=== PATIENT | male | born 1980 ===

== ENCOUNTER 2019-03-10 19:14 | Emergency (ER) | payer OTHER, SELFPAY ==
[2019-03-10 19:29] VITALS: BMI 57.6
[2019-03-10 19:34] VITALS: BP 125/84; PULSE 91; RESP 18; TEMP 97.8
[2019-03-10] MEDS ORDERED: Naproxen 550 mg Tab PO STA (20:00)
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
[2019-03-10 22:34] VITALS: O2SAT 98
--- NOTE | 2019-03-11 09:38 | RAD ---
Date of service: 03/10/2019 PROCEDURE: Radiographs of the right tibia and fibula. HISTORY: pain COMPARISON: None available TECHNIQUE: Frontal and lateral views obtained. Three views obtained. FINDINGS: BONES: No fracture or destructive lesion. JOINT SPACES: Unremarkable. OTHER FINDINGS: None. IMPRESSION: Unremarkable radiographs of the right tibia and fibula.
--- NOTE | 2019-03-11 09:40 | RAD ---
Date of service: 03/10/2019 PROCEDURE: Radiographs of the Lumbar Spine. HISTORY: pain COMPARISON: No prior. TECHNIQUE: Seven views obtained. FINDINGS: BONES: Normal alignment. No listhesis. No fracture. DISC SPACES: Unremarkable. OTHER FINDINGS: None. IMPRESSION: Unremarkable radiographs of the lumbar spine.
--- NOTE | 2019-03-11 09:43 | RAD ---
Date of service: 03/10/2019 PROCEDURE: Right Knee Radiographs. HISTORY: pain COMPARISON: None. TECHNIQUE: 2 views obtained. FINDINGS: BONES: Normal. No fracture. JOINTS: Normal. No osteoarthritis. JOINT EFFUSION: None. OTHER FINDINGS: None. IMPRESSION: Normal radiographs of the right knee.
== END 2019-03-10 22:33 | disposition home or self-care (01) ==
LOC: ED 19:14
DX: M54.5 Low back pain (principal); S83.91XA Sprain of unspecified site of right knee, initial encounter; V49.9XXA Car occupant (driver) (passenger) injured in unspecified traffic accident, initial encounter